=== PATIENT | male | born 1980 ===

== ENCOUNTER 2024-07-26 21:42 | Inpatient (IN) | payer SELFPAY ==
[~2024-07-26] VITALS: Ht 172.7 cm; Wt 100.0 kg
[2024-07-26 22:48] LABS: COVID AG,FIA SOURCE NASAL SWAB
[2024-07-26 23:09] LABS: SARS-COV2 (COVID) ANTIGEN,FIA Negative (Negative)
[2024-07-27] VITALS (9 sets, daily range): BP systolic 128–148; BP diastolic 63–82; PULSE 72–100; RESP 18; TEMP 97.5–97.6; O2SAT 97–99
[2024-07-27] MEDS ORDERED: ZOLPIDEM TARTRATE 10 MG TABLET PO PRN (02:00)
[2024-07-27] MEDS ORDERED: LORazepam 2 MG TABLET PO PRN ×2 (02:00→10:45)
[2024-07-27] MEDS ORDERED: HALOPERIDOL 5 MG TABLET PO PRN (02:00)
[2024-07-27] MEDS: HALOPERIDOL 5 MG TABLET PO ONE (05:36)
[2024-07-27] MEDS: LORazepam 2 MG TABLET PO ONE (05:36)
[2024-07-27] MEDS: DiphenhydrAMINE HCL 25 MG/10 ML SOLUTION UDCUP PO ONE (05:36)
[2024-07-27] MEDS: DiphenhydrAMINE HCL 25 MG CAPSULE PO ONE (05:38)
[2024-07-27] MEDS ORDERED: HydrOXYzine PAMOATE 50 MG CAPSULE PO PRN (08:45)
[2024-07-27] MEDS ORDERED: MAGNESIUM HYDROXIDE SUSPENSION 30 ML UDCUP PO PRN (08:45)
[2024-07-27] MEDS ORDERED: TUBERCULIN, PURIFIED PROTEIN DERIVATIVE 5 TU/0.1 ML SYRINGE ID ONE (08:45)
[2024-07-27] MEDS ORDERED: LOPERAMIDE HCL 2 MG CAPSULE PO PRN (08:45)
[2024-07-27] MEDS ORDERED: ACETAMINOPHEN 325 MG TABLET PO PRN (08:45)
[2024-07-27] MEDS ORDERED: MAG HYDROX/ALUMINUM HYD/SIMETH ES 30 ML SUSPENSION UDCUP PO PRN (08:45)
[2024-07-27] MEDS ORDERED: PROMETHAZINE HCL 25 MG TABLET PO PRN (08:45)
[2024-07-27] MEDS ORDERED: GuaiFENesin/D-METHORPHAN [SUGAR-FREE] 200-20MG/10 ML SYRUP UDCUP PO PRN (08:45)
[2024-07-27] MEDS: THIAMINE 100 MG TABLET PO SCH (09:00)
[2024-07-27] MEDS: DIVALPROEX SODIUM 500 MG ER TABLET PO SCH (09:00)
[2024-07-27] MEDS: MULTIVITAMINS WITH MINERALS, THERAPEUTIC TABLET PO SCH (09:00)
[2024-07-27] MEDS: FOLIC ACID 1 MG TABLET PO SCH (09:00)
[2024-07-27] MEDS: NALTREXONE HCL 50 MG TABLET PO SCH (09:00)
[2024-07-27] MEDS: CYANOCOBALAMIN 1,000 MCG/ML VIAL IM ONE (12:14)
[2024-07-27] MEDS ORDERED: OLANZapine 5 MG RAPDIS TABLET PO SCH (21:00)
[2024-07-27] MEDS: MELATONIN 5 MG TABLET PO SCH (21:00)
[2024-07-28] MEDS ORDERED: LORazepam 2 MG TABLET PO PRN (07:00)
[2024-07-28 08:28] VITALS: BP 156/92; PULSE 87; RESP 16; TEMP 97.4; O2SAT 98
[2024-07-28] MEDS ORDERED: LORazepam 2 MG TABLET PO SCH (09:00)
[2024-07-28] MEDS ORDERED: NALT50TA33 PO (11:20)
[2024-07-28] MEDS ORDERED: MELA5TAB40 PO (11:20)
[2024-07-28] MEDS ORDERED: PRAZ1 PO (11:20)
[2024-07-30] MEDS ORDERED: LORazepam 1 MG TABLET PO PRN (07:00)
[2024-07-30] MEDS ORDERED: LORazepam 1 MG TABLET PO SCH (09:00)
[2024-07-31] MEDS ORDERED: LORazepam 1 MG TABLET PO PRN (07:00)
== END 2024-07-28 18:23 | disposition home or self-care (01) | DRG 885 ==
LOC: EMS 21:42 → 3EI 07-27 03:54
PROVIDERS: ADMIT Psychiatry & Neurology Psychiatry; ATTEND Psychiatry & Neurology Psychiatry
PROC: GZHZZZZ Group Psychotherapy (ICD-10-PCS; principal; 2024-07-27)
PROC: GZ56ZZZ Individual Psychotherapy, Supportive (ICD-10-PCS; 2024-07-27)
DX: F32.2 Major depressive disorder, single episode, severe without psychotic features (principal); G93.41 Metabolic encephalopathy; R45.851 Suicidal ideations; Z20.822 Contact with and (suspected) exposure to COVID-19; F10.10 Alcohol abuse, uncomplicated; E66.9 Obesity, unspecified; Z68.33 Body mass index [BMI] 33.0-33.9, adult
CPT/HCPCS: 99285; J3420